=== PATIENT | female | born 1985 | race Caucasian/White ===

== ENCOUNTER 2021-10-05 19:31 | Emergency (ER) | payer OTHER ==
[~2021-10-05] VITALS: Ht 167.6 cm; Wt 88.0 kg
[2021-10-05 21:29] LABS: BILIRUBIN,URINE NEGATIVE (NEG); CLARITY,URINE CLEAR; COLOR,URINE YELLOW; NITRITE,URINE NEGATIVE (NEG); PROTEIN,URINE NEGATIVE (NEG-TRACE)
[2021-10-05] MEDS ORDERED: diazePAM 5 MG TABLET PO ONE (21:30)
[2021-10-05 21:39] LABS: BACTERIA,URINE FEW /HPF (0-FEW); RBC,URINE OCC /HPF (0-2); WBC,URINE OCC /HPF (0-4)
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
[2021-10-05] MEDS ORDERED: CYCL10TA19 PO (23:22)
[2021-10-06 00:11] VITALS: BP 123/60
== END 2021-10-06 00:14 | disposition home or self-care (01) ==
LOC: ER 19:31
DX: M54.2 Cervicalgia (principal); M54.6 Pain in thoracic spine; G89.11 Acute pain due to trauma; R51.9 Headache, unspecified; F17.200 Nicotine dependence, unspecified, uncomplicated; Z90.710 Acquired absence of both cervix and uterus; Z88.1 Allergy status to other antibiotic agents; Z88.6 Allergy status to analgesic agent; V49.49XA Driver injured in collision with other motor vehicles in traffic accident, initial encounter; Y93.89 Activity, other specified; Y92.488 Other paved roadways as the place of occurrence of the external cause; Y99.8 Other external cause status
CPT/HCPCS: 70450; 71250; 72125; 81001; 81025; 99284-25